=== PATIENT | female | born 1965 | race Caucasian/White ===

== ENCOUNTER 2018-04-25 17:47 | Emergency (ER) | payer BC ==
[2018-04-25 18:09] VITALS: BP 166/94
--- NOTE | 2018-04-25 19:10 | UC ---
Lower Extremity/Ankle HPI - HPI Summary HPI Summary: pain in the left knee after fall on the ice , in which she hit the knee directly . pain in the front and the back of the knee, pain worse with weight bearing - History of Current Complaint Chief Complaint: UCLowerExtremity Stated Complaint: LEFT KNEE INJURY S/P FALL Time Seen by Provider: 04/25/18 19:02 Hx Obtained From: Patient Hx Last Menstrual Period: 11/02/15 ?: No Onset/Duration: Sudden Onset, Lasting Hours Severity Initially: Moderate Severity Currently: Moderate Pain Intensity: 8 Aggravating Factor(s): Standing Alleviating Factor(s): Rest Able to Bear Weight: Yes - Allergies/Home Medications Allergies/Adverse Reactions: Allergies Allergy/AdvReac Type Severity Reaction Status Date / Time Penicillins Allergy See Comment Verified 04/25/18 18:05 Home Medications: Home Medications NK [No Home Medications Reported] 04/25/18 [History Confirmed 04/25/18] PMH/Surg Hx/FS Hx/Imm Hx Previously Healthy: Yes - Surgical History Surgical History: Yes Surgery Procedure, Year, and Place: Tubal ligation - Family History Known Family History: Positive: Other - no reported cad, htn, pulmonary disease. - Social History Alcohol Use: Rare Substance Use Type: None Smoking Status (MU): Never Smoked Tobacco Review of Systems All Other Systems Reviewed And Are Negative: Yes Constitutional: Positive: Negative Skin: Positive: Negative Eyes: Positive: Negative ENT: Positive: Negative Respiratory: Positive: Negative Cardiovascular: Positive: Negative Gastrointestinal: Positive: Negative Genitourinary: Positive: Negative Motor: Positive: Decreased ROM - left knee, with swelling and pain anteriorly and posteriorly Physical Exam Triage Information Reviewed: Yes Appearance: Well-Appearing Vital Signs: Initial Vital Signs Temp 36.4 C 04/25/18 18:06 Pulse 57 04/25/18 18:06 Resp 17 04/25/18 18:06 BP 166/94 04/25/18 18:06 Pulse Ox 100 04/25/18 18:06 Vital Signs Reviewed: Yes Eye Exam: Normal ENT Exam: Normal ENT: Positive: Normal ENT inspection Respiratory: Positive: Chest non-tender Cardiovascular Exam: Normal Abdomen Description: Positive: Nontender Musculoskeletal Exam: Other - left knee with ecchymotic area noted anteriorly , negative anterior draw test, negative roxane, negative julio . no effusion. no pain or ligamentous laxity with varus and valgus testing Lower Extremity Course/Dx - Differential Dx/Diagnosis Provider Diagnosis: Knee sprain, Knee effusion, left Discharge - Sign-Out/Discharge Documenting (check all that apply): Patient Departure All imaging exams completed and their final reports reviewed: Yes - Discharge Plan Condition: Fair Disposition: HOME Patient Education Materials: Knee Sprain (ED), Swollen Knee Joint (ED) Referrals: No Primary Care Phys,NOPCP [Primary Care Provider] - - Billing Disposition and Condition Condition: FAIR Disposition: Home
--- NOTE | 2018-04-26 08:15 | UC ---
- Progress Note Progress Note: Patient Name: ARMOND GURROLA Medical Record#: [id number] Ordering Physician: Bill Mejía MD Acct.#: [id number] : 1965 Age: 52 Sex: F Location: [facility] - [place], [place] Exam Date: 04/25/181904 ADM Status: [facility] ER Order Information: KNEE LEFT 4+ VWS Accession Number: [id number] CPT: 11351 HISTORY: fall , pain left knee . COMPARISONS: None VIEWS: 4, Frontal, lateral, axial, and oblique views of the left knee FINDINGS: BONE DENSITY: Normal. BONES: There is no displaced fracture. JOINTS: There is mild patellofemoral osteophyte formation. There is no lipohemarthrosis. ALIGNMENT: There is no dislocation. SOFT TISSUES: Unremarkable. OTHER FINDINGS: None. IMPRESSION: NO ACUTE OSSEOUS INJURY. IF SYMPTOMS PERSIST, RECOMMEND REPEAT IMAGING. R2 Preliminary Imaging Read R2 <Electronically signed by Nathaniel Lozano MD in [place]> 04/26/18741 Dictated By: Nathaniel Lozano MD Dictated Date/Time: 04/26/18741 Transcribed Date/Time: 04/26/18739 Copy to: CC:Bill Mejía MD; No Primary Care Phys,NOPCP Imaging - [facility] Imaging [facility] Urgent [facility] [address] [address] ph ([phone]) ph ([phone]) ph ([phone]) This report is only to be considered final once signed by the Provider(s) as displayed in the "<Electronically Signed by >" field (s). Absence of a signature indicates the report is in a draft status and still needs to be finalized. In the event this document was created by someone other than the signing Provider, the individual initiating the document will be listed in the "Entered by:" or "Dictated by:" wise. 1 of 2 Course/Dx - Diagnoses Provider Diagnoses: Knee sprain, Knee effusion, left Discharge - Sign-Out/Discharge Documenting (check all that apply): Post-Discharge Follow Up All imaging exams completed and their final reports reviewed: Yes - Discharge Plan Condition: Fair Disposition: HOME Patient Education Materials: Knee Sprain (ED), Swollen Knee Joint (ED) Forms: *Work Release Referrals: No Primary Care Phys,NOPCP [Primary Care Provider] - - Billing Disposition and Condition Condition: FAIR Disposition: Home
== END 2018-04-25 19:41 | disposition home or self-care (01) ==
LOC: UCCORT 17:47
DX: S83.92XA Sprain of unspecified site of left knee, initial encounter (principal); M25.462 Effusion, left knee; Z88.0 Allergy status to penicillin; W00.0XXA Fall on same level due to ice and snow, initial encounter; Y92.9 Unspecified place or not applicable
CPT/HCPCS: 99211; G0463